=== PATIENT | male | born 1990 | race American Indian/Alaskan Native ===

== ENCOUNTER 2017-01-11 21:41 | Emergency (ER) | payer OTHER ==
[2017-01-12] MEDS ORDERED: MOTRIN PO ONE (00:25)
[2017-01-12] MEDS ORDERED: FLEXERIL PO ONE (00:25)
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
[2017-01-12 01:36] VITALS: BP 120/76
== END 2017-01-12 01:38 | disposition home or self-care (01) ==
LOC: ED 21:41
DX: M54.5 Low back pain (principal); M79.1 Myalgia; F17.200 Nicotine dependence, unspecified, uncomplicated; V49.49XA Driver injured in collision with other motor vehicles in traffic accident, initial encounter; Y92.488 Other paved roadways as the place of occurrence of the external cause; Y93.89 Activity, other specified; Y99.8 Other external cause status
CPT/HCPCS: 99282

== ENCOUNTER 2017-10-28 23:40 | Emergency (ER) | payer SELFPAY ==
[2017-10-29 00:41] VITALS: BP 132/87
[2017-10-29 03:44] LABS: Bilirubin,Urine NEG (Negative); Blood,Urine SM (Negative); Color,Urine Straw (Yellow); Nitrite,Urine NEG (Negative); Protein,Urine <15 mg/dL mg/dL (Negative); Urobilinogen,Urine < 2.0 mg/dL (<2.0)
== END 2017-10-29 11:58 | disposition left against medical advice (07) ==
LOC: ED 23:40
DX: Z53.21 Procedure and treatment not carried out due to patient leaving prior to being seen by health care provider (principal)
CPT/HCPCS: 81001

== ENCOUNTER 2017-11-27 08:48 | Emergency (ER) | payer SELFPAY ==
[2017-11-27 10:17] VITALS: BP 107/67
--- NOTE | 2017-11-27 11:59 | Emergency Department Report ---
Blank Doc - Documentation Documentation: Patient is a 27-year-old [place] male who states he was here in the emergency department several weeks ago but it eloped. Patient was complaining of back pain and some dysuria at that time he did contact medical records was told he has a UTI but has not had treatment. Patient states for the past 2 days he's had some increased dysuria hematuria and low back pain. Patient appears well as not ill-appearing he does have a macular papular rash diffusely on his body. Urinalysis will be performed to be reassessed by GIANFRANCOP
[2017-11-27 12:20] LABS: Bilirubin,Urine NEG (Negative); Blood,Urine LG (Negative); Color,Urine Yellow (Yellow); Mucus,Urine 2+ /HPF; Nitrite,Urine NEG (Negative); Urobilinogen,Urine < 2.0 mg/dL (<2.0)
[2017-11-27 12:25] LABS: RBC,Urine > 182.0 /HPF (0.0-6.0); WBC,Urine > 182.0 /HPF (0.0-6.0)
[2017-11-27] MEDS ORDERED: ROCEPHIN IM ONE (12:26)
[2017-11-27] MEDS ORDERED: XYLOCAINE 1% MPF 5 mL INFILTRATI ONE (12:26)
--- NOTE | 2017-11-27 12:33 | Emergency Department Report ---
ED Male HPI - General Chief complaint: Urogenital-Male Stated complaint: UTI, BLOOD IN URINE Time Seen by Provider: 11/27/17 11:55 Source: patient Mode of arrival: Ambulatory Limitations: No Limitations - History of Present Illness Initial comments: This is a 27-year-old male nontoxic, well nourished in appearance, no acute signs of distress presents to the ED with c/o of dysuria, polyuria, hematuria 3 weeks. Patient stated 3 weeks ago he came into the ER but eloped. Patient stated he wants medical records and was told that his urine is abnormal and must see a primary care doctor. Patient stated has intermittent chronic low back pain but currently in the ED denies any back pain. Patient denies any abdominal pain, fever, chills, nausea, vomiting, chest pain shortness of breath. Patient denies significant past medical history or drug allergies. MD Complaint: dysuria -: week(s) (3) Radiation: none Severity: mild Severity scale (0 -10): 8 Quality: burning Consistency: constant Improves with: none Worsens with: none blood in urine, dysuria. denies: discharge, swelling, mass, rash, urinary retention, fever, nausea/vomiting, incontinence - Related Data Previous Rx's Medication Instructions Recorded Last Taken Type Cyclobenzaprine [Flexeril 10 MG 10 mg PO QHS #20 tablet 01/12/17 Unknown Rx TAB] Ibuprofen [Motrin 800 MG tab] 800 mg PO TID #30 tablet 01/12/17 Unknown Rx Ciprofloxacin HCl [Ciprofloxacin 500 mg PO Q12HR #14 tab 11/27/17 Unknown Rx TAB] Allergies Allergy/AdvReac Type Severity Reaction Status Date / Time No Known Allergies Allergy Verified 01/11/17 21:46 ED Review of Systems ROS: Stated complaint: UTI, BLOOD IN URINE Other details as noted in HPI Constitutional: denies: chills, fever Eyes: denies: eye pain, eye discharge, vision change ENT: denies: ear pain, throat pain Respiratory: denies: cough, shortness of breath, wheezing Cardiovascular: denies: chest pain, palpitations Endocrine: no symptoms reported Gastrointestinal: denies: abdominal pain, nausea, diarrhea Genitourinary: urgency, dysuria, frequency, hematuria Musculoskeletal: denies: back pain, joint swelling, arthralgia Skin: denies: rash, lesions Neurological: denies: headache, weakness, paresthesias Psychiatric: denies: anxiety, depression Hematological/Lymphatic: denies: easy bleeding, easy bruising ED Past Medical Hx - Past Medical History Previous Medical History?: Yes Additional medical history: UTI - Surgical History Past Surgical History?: No - Social History Smoking Status: Current Every Day Smoker Substance Use Type: Alcohol, Non Opiate Pain - Medications Home Medications: Home Medications Medication Instructions Recorded Confirmed Last Taken Type Cyclobenzaprine [Flexeril 10 MG 10 mg PO QHS #20 tablet 01/12/17 Unknown Rx TAB] Ibuprofen [Motrin 800 MG tab] 800 mg PO TID #30 tablet 01/12/17 Unknown Rx Ciprofloxacin HCl [Ciprofloxacin 500 mg PO Q12HR #14 tab 11/27/17 Unknown Rx TAB] ED Physical Exam - General Limitations: No Limitations General appearance: alert, in no apparent distress - Head Head exam: Present: atraumatic, normocephalic - Eye Eye exam: Present: normal appearance, PERRL, EOMI Pupils: Present: normal accommodation - ENT ENT exam: Present: mucous membranes moist - Neck Neck exam: Present: normal inspection, full ROM. Absent: tenderness, meningismus, lymphadenopathy, thyromegaly - Respiratory Respiratory exam: Present: normal lung sounds bilaterally. Absent: respiratory distress, wheezes, rales, rhonchi, stridor, chest wall tenderness, accessory muscle use, decreased breath sounds, prolonged expiratory - Cardiovascular Cardiovascular Exam: Present: regular rate, normal rhythm, normal heart sounds. Absent: bradycardia, tachycardia, irregular rhythm, systolic murmur, diastolic murmur, rubs, gallop - GI/Abdominal GI/Abdominal exam: Present: soft, normal bowel sounds. Absent: distended, tenderness, guarding, rebound, rigid, diminished bowel sounds - Rectal Rectal exam: Present: deferred - Extremities Exam Extremities exam: Present: normal inspection, full ROM, normal capillary refill. Absent: tenderness, pedal edema, joint swelling, calf tenderness - Back Exam Back exam: Present: normal inspection, full ROM. Absent: tenderness, CVA tenderness (R), CVA tenderness (L), muscle spasm, paraspinal tenderness, vertebral tenderness, rash noted - Neurological Exam Neurological exam: Present: alert, oriented X3, CN II-XII intact, normal gait, reflexes normal - Psychiatric Psychiatric exam: Present: normal affect, normal mood - Skin Skin exam: Present: warm, dry, intact, normal color. Absent: rash ED Course Vital Signs 11/27/17 10:13 Temperature 97.9 F Pulse Rate 71 Respiratory 16 Rate Blood Pressure 107/67 O2 Sat by Pulse 99 Oximetry - Reevaluation(s) Reevaluation #1: 11/27/17 12:30 Patient is speaking in full sentences with no signs of distress noted. - Consultations Consultation #1: 11/27/17 12:30 Patient has been consulted with Dr. Mendoza about patient history, physical exam , and labs and examined and screened patient and agrees to ED plan of care and discharge plan of care. ED Medical Decision Making - Medical Decision Making This is a 27-year-old male that presents with UTI. Patient is stable and was examined by me and Dr. Mendoza. There is no CVA tenderness. UA obtained with UTI findings. The patient received 1 g of Rocephin IM in the ED. Patient was discharged with Cipro. Patient was instructed Follow-up with a primary care doctor in 3-5 days or if symptoms worsen and continue return to emergency room as soon as possible. At time of discharge, the patient does not seem toxic or ill in appearance. No acute signs of distress noted. Patient agrees to discharge treatment plan of care. No further questions noted by the patient. Critical care attestation.: If time is entered above; I have spent that time in minutes in the direct care of this critically ill patient, excluding procedure time. ED Disposition Clinical Impression: UTI (urinary tract infection) Qualifiers: Urinary tract infection type: site unspecified Hematuria presence: with hematuria Qualified Code(s): N39.0 - Urinary tract infection, site not specified ; R31.9 - Hematuria, unspecified; R31.9 - Hematuria, unspecified Disposition: DC-01 TO HOME OR SELFCARE Is pt being admited?: No Does the pt Need Aspirin: No Condition: Stable Instructions: Urinary Tract Infection in Women (ED), Ciprofloxacin (By mouth) Additional Instructions: Follow-up with a primary care doctor in 3-5 days or if symptoms worsen and continue return to emergency room as soon as possible. Prescriptions: Ciprofloxacin HCl [Ciprofloxacin TAB] 500 mg PO Q12HR #14 tab Referrals: PRIMARY CAREMD [Primary Care Provider] - 3-5 Days TAVO CHAUDHARI MD [Staff Physician] - 3-5 Days [facility] [Outside] - 3-5 Days [facility] [Outside] - 3-5 Days Forms: Work/School Release Form(ED)
== END 2017-11-27 12:42 | disposition home or self-care (01) ==
LOC: ED 08:48
DX: N39.0 Urinary tract infection, site not specified (principal); F17.200 Nicotine dependence, unspecified, uncomplicated
CPT/HCPCS: 81001; 96372; 99283; J0696

== ENCOUNTER 2018-12-19 15:41 | Emergency (ER) | payer OTHER ==
--- NOTE | 2018-12-19 17:18 | Emergency Department Report ---
Chief Complaint: Urogenital-Male Stated Complaint: OTHER Time Seen by Provider: 12/19/18 17:11 - HPI History of Present Illness: This is a 28 y.o. male that presents with scabs around shaft of penis x 1 week. He denies penile discharge, urinary frequency, urgency, dysuria, and pain. - ROS Review of Systems: Rash to shaft of penis. - Exam Vital Signs: Vital Signs 12/19/18 16:40 Temperature 98.0 F Pulse Rate 73 Respiratory 18 Rate Blood Pressure 128/76 [Right] O2 Sat by Pulse 96 Oximetry Physical Exam: Well developed, well nourished, and appears to be in no distress. HEENT: normocephalic, PEERL, EOMI, no nasal discharge, oral cavity and pharynx normal. Cardiac: RRR Lungs: Clear to auscultation and percussion w/o rales, rubs, and rhonchi. Abdomen: Soft nontender, +BSx4 : Normal penis and testes, no tenderness, scrotal mass, urethral discharge, or lesions Skin: Normal color, texture and turgor. MSE screening note: Focused history and physical exam performed. Due to findings the following was ordered: Fast track for further evaluation. ED Medical Decision Making - Medical Decision Making Normal evaluation of penis on focal exam. Instructed to change soaps to see if that help irritation. Patient w/o penile discharge, pelvic pain, low back pain, or testicular pain or swelling. Instructed to f/u with PCP or Health Department. Given print out of safe sex practices and instructions on when to return to ER. Patient discharged home stable. ED Disposition for MSE Clinical Impression: Feared complaint without diagnosis Disposition: DC-01 TO HOME OR SELFCARE Is pt being admited?: No Does the pt Need Aspirin: No Condition: Stable Instructions: Safe Sex (ED) Additional Instructions: Change soaps to see if that improved irritation. Rinse skin thoroughly after shows or baths. Follow up a primary care provider or health department for STD screening if symptoms persist. Referrals: [facility] [Outside] - 3-5 Days [facility] [facility] [Outside] - 3-5 Days [facility] [Outside] - 3-5 Days [facility] [Outside] - 3-5 Days Forms: Work/School Release Form(ED) Time of Disposition: 17:23
== END 2018-12-19 17:15 | disposition home or self-care (01) ==
LOC: ED 15:41
DX: Z71.1 Person with feared health complaint in whom no diagnosis is made (principal)
CPT/HCPCS: 99281